=== PATIENT | male | born 1960 | race Caucasian/White ===

== ENCOUNTER 2017-11-16 00:16 | Emergency (ER) | payer BC ==
[2017-11-16] MEDS ORDERED: PROMETHAZINE 25 MG/ML VIAL ONE (00:26)
[2017-11-16 01:17] LABS: Absolute Lymphocytes (CBC) 1.6 K/uL (0.7-4.9); Absolute Monocytes 0.7 K/uL (0.1-1.3); Absolute Neutrophil 6.1 K/uL (1.8-8.0); Basophils % 0.7 % (0-1.3); Eosinophils % 1.8 % (0-4.4); Hematocrit 40.4 % (39.6-49.0); Lymphocytes % 18.6 % (15.3-44.8); MCH 31.8 pg (27.0-35.0); MCV 94.9 fL (80-100); MPV 8.3 fL (7.6-11.3); Monocytes % 7.7 % (3.3-12.3); RBC Red Blood Cell Count 4.26 M/uL (4.33-5.43)
[2017-11-16 01:22] LABS: Protime INR 0.92
[2017-11-16 01:32] LABS: Barbiturates NEGATIVE (NEGATIVE); Benzodiazepines NEGATIVE (NEGATIVE); Cocaine NEGATIVE (NEGATIVE); METHAMPHETAM NEGATIVE (NEGATIVE); Methadone NEGATIVE (NEGATIVE); Opiates NEGATIVE (NEGATIVE); Phencyclidine NEGATIVE (NEGATIVE); THC Cannibis NEGATIVE (NEGATIVE)
[2017-11-16 01:54] LABS: Albumin 4.2 g/dL (3.4-5.0); Bilirubin Direct 0.2 mg/dL (0-0.2); Bilirubin Total 0.7 mg/dL (0.2-1.0); Potassium 4.1 mmol/L (3.5-5.1); Protein, Total 7.2 g/dL (6.4-8.2)
[2017-11-16 01:55] LABS: Magnesium 1.4 mg/dL (1.8-2.4)
[2017-11-16 01:58] LABS: Urine Blood TRACE (NEG); Urine Glucose NEGATIVE (NEG); Urine Protein NEGATIVE (NEG); Urine pH 6.5 (5.0-7.0)
[2017-11-16] MEDS ORDERED: Magnesium Sulfate 2gm IVPB 2 G/50 ML BAG IV ONE (02:00)
[2017-11-16] MEDS ORDERED: NA CHLORIDE 0.9% 1,000 ML ONE (02:22)
--- NOTE | 2017-11-16 03:02 | EDPHYS ---
Physician Documentation [facility] Name: Dru Pierre Age: 57 yrs Sex: Male : 1960 Arrival Date: 11/16/2017 Time: 00:33 Bed 3 Private MD: ED Physician Vitaliy Kumar HPI: 11/16 02:18 This 57 yrs old Male presents to ER via EMS with complaints of chest pain. jr8 02:18 The patient or guardian reports chest pain that is located primarily in the substernal jr8 area. Onset: acutely, today. The pain does not radiate. Associated signs and symptoms: The patient has no apparent associated signs or symptoms. The chest pain is described as sharp. Duration: The patient or guardian reports multiple episodes, that are intermittent, that wax and wane. Modifying factors: The symptoms are alleviated by nothing. the symptoms are aggravated by nothing. Severity of pain: At its worst the pain was mild in the emergency department the pain has resolved. The patient has not experienced similar symptoms in the past. The patient has not recently seen a physician. History of alcohol abuse. Stated that on the weekends drinks heavily. Tonight had sudden onset of chest pain. Had several beers earlier in the day. Denies any other symptoms . Historical: - Allergies: 00:41 No Known Allergies; rv - Home Meds: 00:41 olmesartan oral oral [Active]; amlodipine 10 mg tab 1 tab once daily [Active]; rv doxazosin 2 mg oral tab [Active]; - PMHx: 00:41 Hypertension; rv - PSHx: 00:41 Hernia repair; back surgery; rv - Immunization history:: Adult Immunizations not up to date. - Social history:: Smoking status: Patient uses tobacco products, smokes one pack cigarettes per day. Patient uses alcohol. - Ebola Screening: : Patient negative for fever greater than or equal to 101.5 degrees Fahrenheit, and additional compatible Ebola Virus Disease symptoms Patient denies exposure to infectious person Patient denies travel to an Ebola-affected area in the 21 days before illness onset. ROS: 02:18 Eyes: Negative for injury, pain, redness, and discharge, ENT: Negative for injury, jr8 pain, and discharge, Neck: Negative for injury, pain, and swelling, Respiratory: Negative for shortness of breath, cough, wheezing, and pleuritic chest pain, Abdomen/GI: Negative for abdominal pain, nausea, vomiting, diarrhea, and constipation, Back: Negative for injury and pain, MS/Extremity: Negative for injury and deformity, Skin: Negative for injury, rash, and discoloration, Neuro: Negative for headache, weakness, numbness, tingling, and seizure. 02:18 Cardiovascular: Positive for chest pain, Negative for edema, orthopnea, palpitations, paroxysmal nocturnal dyspnea. Exam: 02:18 Eyes: Pupils equal round and reactive to light, extra-ocular motions intact. Lids and jr8 lashes normal. Conjunctiva and sclera are non-icteric and not injected. Cornea within normal limits. Periorbital areas with no swelling, redness, or edema. ENT: Nares patent. No nasal discharge, no septal abnormalities noted. Tympanic membranes are normal and external auditory canals are clear. Oropharynx with no redness, swelling, or masses, exudates, or evidence of obstruction, uvula midline. Mucous membranes moist. Neck: Trachea midline, no thyromegaly or masses palpated, and no cervical lymphadenopathy. Supple, full range of motion without nuchal rigidity, or vertebral point tenderness. No Meningismus. Cardiovascular: Regular rate and rhythm with a normal S1 and S2. No gallops, murmurs, or rubs. Normal PMI, no JVD. No pulse deficits. Respiratory: Lungs have equal breath sounds bilaterally, clear to auscultation and percussion. No rales, rhonchi or wheezes noted. No increased work of breathing, no retractions or nasal flaring. Abdomen/GI: Soft, non-tender, with normal bowel sounds. No distension or tympany. No guarding or rebound. No evidence of tenderness throughout. Back: No spinal tenderness. No costovertebral tenderness. Full range of motion. Skin: Warm, dry with normal turgor. Normal color with no rashes, no lesions, and no evidence of cellulitis. MS/ Extremity: Pulses equal, no cyanosis. Neurovascular intact. Full, normal range of motion. Neuro: Awake and alert, GCS 15, oriented to person, place, time, and situation. Cranial nerves II-XII grossly intact. Motor strength 5/5 in all extremities. Sensory grossly intact. Cerebellar exam normal. Normal gait. Vital Signs: 00:41 BP 160 / 93; Pulse 89; Resp 17; Temp 99.6(O); Pulse Ox 97% on R/A; Weight 74.84 kg; rv Height 5 ft. 7 in. (170.18 cm); 01:20 BP 169 / 87; Pulse 77; Resp 16; Pulse Ox 98% on R/A; mt 01:45 BP 149 / 87; Pulse 69; Resp 16; Pulse Ox 95% on R/A; mt 00:41 Body Mass Index 25.84 (74.84 kg, 170.18 cm) rv MDM: 00:34 Patient medically screened. jr8 02:59 Data reviewed: vital signs, nurses notes, lab test result(s), EKG, radiologic studies, jr8 plain films. Data interpreted: Pulse oximetry: on room air is 95 %. Interpretation: normal. Counseling: I had a detailed discussion with the patient and/or guardian regarding: the historical points, exam findings, and any diagnostic results supporting the discharge/admit diagnosis, lab results, radiology results, the need for outpatient follow up, a family practitioner, to return to the emergency department if symptoms worsen or persist or if there are any questions or concerns that arise at home. Response to treatment: the patient's symptoms have markedly improved after treatment. ED course: Discussed with patient that he needs to decrease his alcohol intake. No acute findings seen to signify cardiac ischemia or infarction. Needs to f/u with PCP. If worse or something changes to come back for further evaluation. Patient good with this and will follow up . 11/16 00:53 Order name: Basic Metabolic Panel rv 11/16 00:53 Order name: CBC with Diff; Complete Time: :11/16 00:53 Order name: Ckmb; Complete Time: 02:15 11/16 00:53 Order name: CPK; Complete Time: 02:15 11/16 00:53 Order name: LFT's; Complete Time: 02:15 11/16 00:53 Order name: Magnesium; Complete Time: 02:15 11/16 00:53 Order name: NT PRO-BNP; Complete Time: 02:15 11/16 00:53 Order name: PT-INR; Complete Time: :44 11/16 00:53 Order name: Ptt, Activated; Complete Time: :44 11/16 00:53 Order name: Troponin (emerg Dept Use Only); Complete Time: 01:44 rv 11/16 00:53 Order name: ETOH Level; Complete Time: 02:15 rv 11/16 00:53 Order name: Urine Drug Screen; Complete Time: 01:44 rv 11/16 00:53 Order name: Basic Metabolic Panel; Complete Time: 02:15 EDMS 07/ 01:09 Order name: Urine Dipstick--Ancillary (enter results); Complete Time: 02:15 eb 11/16 00:53 Order name: XRAY Chest (1 view); Complete Time: 17:01 rv 11/16 00:53 Order name: EKG; Complete Time: 00:53 rv 11/16 00:53 Order name: Cardiac monitoring; Complete Time: 00:54 rv 11/16 00:53 Order name: EKG - Nurse/Tech; Complete Time: 00:53 11/16 00:53 Order name: IV Saline Lock; Complete Time: 00:54 11/16 00:53 Order name: Labs collected and sent; Complete Time: 00:54 rv 11/16 00:53 Order name: O2 Per Protocol; Complete Time: 00:54 rv 11/16 00:53 Order name: O2 Sat Monitoring; Complete Time: 00:54 rv 11/16 00:53 Order name: Urine Dipstick-Ancillary (obtain specimen); Complete Time: 01:02 rv 11/16 02:41 Order name: Troponin (emerg Dept Use Only); Complete Time: 17:01 jr8 Administered Medications: 02:17 Drug: Magnesium Sulfate 2 grams Route: IVPB; Infused Over: 2 hrs; Site: left rv antecubital; 03:13 Follow up: Response: No adverse reaction; IV Status: Completed infusion rv 02:18 Drug: NS 0.9% 1000 ml Route: IV; Rate: 1000 ml; Site: left antecubital; rv 03:13 Follow up: Response: No adverse reaction; IV Status: Completed infusion rv Disposition: 09:00 Co-signature as Attending Physician, Vitaliy Kumar MD I agree with the assessment and [place] plan of care. Disposition: 11/16/17 03:01 Discharged to Home. Impression: Chest pain, unspecified, Alcohol use, unspecified with intoxication. - Condition is Stable. - Discharge Instructions: Alcohol Intoxication, Nonspecific Chest Pain, Alcohol Abuse and Nutrition, Aspirin and Your Heart. - Prescriptions for Zofran 4 mg Oral Tablet - take 1 tablet by ORAL route every 12 hours As needed; 20 tablet. - Medication Reconciliation Form, Thank You Letter, Antibiotic Education, Prescription Opioid Use form. - Follow up: Private Physician; When: 2 - 3 days; Reason: Recheck today's complaints, Continuance of care, Re-evaluation by your physician. - Problem is new. - Symptoms have improved. Signatures: Dispatcher [employer] EDVitaliy Valle MD MD cha Roszak, Josh, PA PA jr8 Austin Prasad, RN RN rv Corrections: (The following items were deleted from the chart) 04:10 03:01 11/16/2017 03:01 Discharged to Home. Impression: Chest pain, unspecified; Alcohol rv use, unspecified with intoxication. Condition is Stable. Forms are Medication Reconciliation Form, Thank You Letter, Antibiotic Education, Prescription Opioid Use. Follow up: Private Physician; When: 2 - 3 days; Reason: Recheck today's complaints, Continuance of care, Re-evaluation by your physician. Problem is new. Symptoms have improved. jr8
--- NOTE | 2017-11-16 03:02 | ER ---
Nurse's Notes [facility] Name: Dru Pierre Age: 57 yrs Sex: Male : 1960 Arrival Date: 11/16/2017 Time: 00:33 Bed 3 Private MD: Diagnosis: Chest pain, unspecified;Alcohol use, unspecified with intoxication Presentation: 11/16 00:34 Presenting complaint: EMS states: patient called for chest pain and weakness of both rv lower extremities. Transition of care: patient was not received from another setting of care. Onset of symptoms was November 15, 2017 at 23:30. Risk Assessment: Do you want to hurt yourself or someone else? Patient reports no desire to harm self or others. Initial Sepsis Screen: Does the patient meet any 2 criteria? No. Patient's initial sepsis screen is negative. Initial Sepsis Screen: Does the patient have a suspected source of infection? No. Patient's initial sepsis screen is negative. Care prior to arrival: None. 00:34 Method Of Arrival: EMS: [facility] rv 00:34 Acuity: BIPIN 3 rv Historical: - Allergies: 00:41 No Known Allergies; rv - Home Meds: 00:41 olmesartan oral oral [Active]; amlodipine 10 mg tab 1 tab once daily [Active]; rv doxazosin 2 mg oral tab [Active]; - PMHx: 00:41 Hypertension; rv - PSHx: 00:41 Hernia repair; back surgery; rv - Immunization history:: Adult Immunizations not up to date. - Social history:: Smoking status: Patient uses tobacco products, smokes one pack cigarettes per day. Patient uses alcohol. - Ebola Screening: : Patient negative for fever greater than or equal to 101.5 degrees Fahrenheit, and additional compatible Ebola Virus Disease symptoms Patient denies exposure to infectious person Patient denies travel to an Ebola-affected area in the 21 days before illness onset. Screenin:44 Abuse screen: Denies threats or abuse. Denies injuries from another. Nutritional rv screening: No deficits noted. Tuberculosis screening: No symptoms or risk factors identified. Fall Risk None identified. Assessment: 00:42 General: Appears in no apparent distress. comfortable, Behavior is calm, cooperative. rv Pain: Complains of pain in chest. Neuro: Level of Consciousness is awake, alert, obeys commands, Oriented to person, place, time, situation. Cardiovascular: Capillary refill < 3 seconds. Respiratory: Airway is patent. GI: Reports nausea, vomiting, since after drinking too much beer. : No signs and/or symptoms were reported regarding the genitourinary system. EENT: No signs and/or symptoms were reported regarding the EENT system. Derm: Skin is intact. 01:55 Reassessment: Patient appears in no apparent distress at this time. Patient and/or rv family updated on plan of care and expected duration. Pain level reassessed. Patient is alert, oriented x 3, equal unlabored respirations, skin warm/dry/pink. patient is comfortable. vital signs are stable. awaiting lab results. 03:11 Reassessment: Patient appears in no apparent distress at this time. Patient and/or rv family updated on plan of care and expected duration. Pain level reassessed. Patient is alert, oriented x 3, equal unlabored respirations, skin warm/dry/pink. patient is stable. repeat lab was drawn. awaiting result, patient is for discharge. Vital Signs: 00:41 BP 160 / 93; Pulse 89; Resp 17; Temp 99.6(O); Pulse Ox 97% on R/A; Weight 74.84 kg; rv Height 5 ft. 7 in. (170.18 cm); 01:20 BP 169 / 87; Pulse 77; Resp 16; Pulse Ox 98% on R/A; mt 01:45 BP 149 / 87; Pulse 69; Resp 16; Pulse Ox 95% on R/A; mt 00:41 Body Mass Index 25.84 (74.84 kg, 170.18 cm) rv ED Course: 00:33 Patient arrived in ED. rv 00:34 Red Tinsley PA is PHCP. jr8 00:34 Vitaliy Kumar MD is Attending Physician. jr8 00:38 Triage completed. rv 00:45 Arm band placed on left wrist. rv 00:45 Patient has correct armband on for positive identification. Placed in gown. Bed in low rv position. Call light in reach. Side rails up X 1. Pulse ox on. NIBP on. 01:03 X-ray completed. Portable x-ray completed in exam room. Patient tolerated procedure kw well. 01:03 XRAY Chest (1 view) In Process Unspecified. EDMS 01:58 Pato, Fei, RN is Primary Nurse. bp 04:10 No provider procedures requiring assistance completed. IV discontinued, bleeding rv controlled, No redness/swelling at site. Pressure dressing applied. Administered Medications: 02:17 Drug: Magnesium Sulfate 2 grams Route: IVPB; Infused Over: 2 hrs; Site: left rv antecubital; 03:13 Follow up: Response: No adverse reaction; IV Status: Completed infusion rv 02:18 Drug: NS 0.9% 1000 ml Route: IV; Rate: 1000 ml; Site: left antecubital; rv 03:13 Follow up: Response: No adverse reaction; IV Status: Completed infusion rv Outcome: 03:01 Discharge ordered by MD. sy 04:10 Discharged to home ambulatory. rv 04:10 Condition: improved 04:10 Discharge instructions given to patient, Instructed on discharge instructions, medication usage. 04:10 Patient left the ED. rv Signatures: Dispatcher [employer] EDMS Alicia Davila Josh, PA PA jr8 Tamika De Guzman ak Fei Whyte, RN RN Austin Prasad, HERNANDO RN rv
--- NOTE | 2017-11-16 06:32 | EKG ---
Test Date: 2017-11-16 Test Time: 00:37:23 Transitions Manager: BP MEASUREMENT RESULTS: Intervals: Rate: 70 ND: 156 QRSD: 90 QT: 366 QTc: 395 [place]: P: 23 ND: 156 QRS: 16 T: 53 INTERPRETIVE STATEMENTS: Normal sinus rhythm with sinus arrhythmia Normal ECG No previous ECG available for comparison Electronically Signed On 11-16-17 06:31:30 CDT by Duc Self
--- NOTE | 2017-11-16 07:14 | RAD REPORT ---
EXAM DESCRIPTION: RAD - Chest Single View - 11/16/2017 1:05 am CLINICAL HISTORY: Chest pain COMPARISON: None. TECHNIQUE: AP portable chest image was obtained 0054 hours . FINDINGS: No consolidation, mass or failure finding. Patient has a mild prominence of the interstiti al markings. This is fractionally more pronounced in the lateral right base. The patient's baseline i s unknown. No significant lung parenchymal process seen though a very early interstitial edema or inf iltrate in the right base cannot be excluded. Trachea is midline. Heart and vasculature are normal. No measurable pleural effusion and no pneumotho rax. No gross bony abnormality seen. No acute aortic findings suspected. IMPRESSION: No mass, consolidation or failure. Baseline examination shows slight prominence of the interstitial markings lateral right base. This co uld be baseline for the patient or indicate minimal interstitial edema or infiltrate.
== END 2017-11-16 04:10 | disposition home or self-care (01) ==
LOC: ER 00:16
DX: R07.9 Chest pain, unspecified (principal); F10.929 Alcohol use, unspecified with intoxication, unspecified; I10 Essential (primary) hypertension; F17.210 Nicotine dependence, cigarettes, uncomplicated
CPT/HCPCS: 36415; 71045; 80048; 80076; 80307; 80320; 81003; 82550; 82553; 83735; 83880; 84484; 85025; 85610; 85730; 93005; 96361; 96365; 99284; J2550; J3475; J7030